=== PATIENT | male | born 1945 | race Caucasian/White ===

== ENCOUNTER 2017-05-21 18:40 | Inpatient (IN) ==
[2017-05-21 19:18] LABS: Basophils % 0.4 %; Eosinophils # 0.3 K/mcL (0.0-0.6); Immature Granulocytes % 0.5 % (0-4); Lymphocytes # 3.2 K/mcL (0.6-4.6); Lymphocytes % 32.4 %; Mean Corpuscular HGB Conc 33.8 g/dL (31.6-35.5); Mean Corpuscular Hemoglobin 29.8 pg (28.0-33.3); Mean Corpuscular Volume 88.1 fL (83.0-100.0); Mean Platelet Volume 10.5 fL (9.4-12.4); Monocytes # 0.7 K/mcL (0.0-1.3); Monocytes % 7.6 %; Neutrophils # 5.5 K/mcL (1.6-8.9); Platelet Count 215 K/mcL (140-400); Red Cell Distribution Width 14.1 % (11.5-14.5); Segmented Neutrophils % 56.1 %
--- NOTE | 2017-05-21 19:18 | Emergency Department Note ---
Disposition Clinical Impression: Generalized weakness, Elevated troponin Disposition: Admitted As Inpatient Condition: Good Weakness HPI - General Chief complaint: ED Chest Pain Stated complaint: Cardiac Workup Time Seen by Provider: 05/21/17 18:46 Source: patient Limitations: no limitations Nursing Notes Reviewed: Yes Vital Signs Reviewed: Yes - History of Present Illness HPI Narrative: Patient states in September he was admitted to [facility] in [facility] they said that his heart skips beats. He had a cardiac monitoring device on for 3 weeks he returned this on May 15 he received a call from the [facility] saying that this cardiac monitoring was abnormal and he needs to go to the ER immediately. During that 3 week period of time the patient denies any chest pain, palpitations, or syncope. His only complaint is generalized weakness which has been going on for some time now Pain Scale: 0 - Related Data Allergies Allergy/AdvReac Type Severity Reaction Status Date / Time simvastatin Allergy See Verified 05/21/17 18:42 Comments All systems ED: reviewed and negative except as stated. Constitutional: Reports: weakness. Denies: fever Cardiovascular: Denies: chest pain, palpitations, syncope Past Medical History - Past Medical History Source: patient, nursing notes reviewed Medical history: Reports: CHF, COPD, diabetes, hypertension, other (pulmonary embolism) Surgical history: Reports: angioplasty/stent ([facility]) Psychiatric history: Reports: no psych history - Social History Smoking Status: Former smoker Smokeless Tobacco Status: No Alcohol use: Reports: none Drug use: Reports: none Physical Exam - General Limitations: no limitations General appearance: alert Course Vital Signs Temperature 98.3 F 05/21/17 18:43 Pulse Rate 65 05/21/17 18:43 Respiratory Rate 20 05/21/17 18:43 Blood Pressure 188/78 05/21/17 18:43 O2 Sat by Pulse Oximetry 96 05/21/17 18:43 Temperature 98.3 F 05/21/17 18:43 Pulse Rate 78 05/21/17 20:03 Respiratory Rate 16 05/21/17 20:03 Blood Pressure 173/90 05/21/17 20:03 O2 Sat by Pulse Oximetry 97 05/21/17 20:03 Oxygen Delivery Oxygen Delivery Nasal Cannula Weakness - Lab Data Result diagrams: 05/21/17 19:07 05/21/17 19:07 Lab Results 05/21/17 05/21/17 05/21/17 Range/Units 19:07 19:07 19:07 WBC 9.8 (4.3-11.1) K/mcL RBC 4.46 (3.82-4.97) M/mcL Hgb 13.3 (11.5-15.4) g/dL Hct 39.3 (35.3-44.9) % MCV 88.1 (83.0-100.0) fL MCH 29.8 (28.0-33.3) pg MCHC 33.8 (31.6-35.5) g/dL RDW 14.1 (11.5-14.5) % Plt Count 215 (140-400) K/mcL MPV 10.5 (9.4-12.4) fL Immature Gran % 0.5 (0-4) % Seg Neutrophils % 56.1 % Lymphocytes % 32.4 % Monocytes % 7.6 % Eosinophils % 3.0 % Basophils % 0.4 % Neutrophils # 5.5 (1.6-8.9) K/mcL Lymphocytes # 3.2 (0.6-4.6) K/mcL Monocytes # 0.7 (0.0-1.3) K/mcL Eosinophils # 0.3 (0.0-0.6) K/mcL Basophils # 0.0 (0.0-0.2) K/mcL PT 11.1 (9.4-12.1) Seconds INR 1.0 APTT 32.2 (26.0-36.0) Seconds Sodium 138 (136-145) mEq/L Potassium 4.4 (3.5-4.5) mEq/L Chloride 102 (98-109) mEq/L Carbon Dioxide 26 (19-29) mEq/L BUN 15 (7-20) mg/dL Creatinine 0.90 (0.57-1.11) mg/dL Est GFR ( Amer) > 60 (> 60) Est GFR (Non-Af Amer) > 60 (> 60) BUN/Creatinine Ratio 17 (6-26) Glucose 258 H (70-99) mg/dL Calculated Osmolality 296 (280-300) Calcium 9.6 (8.6-10.8) mg/dL Magnesium 1.8 (1.6-2.6) mg/dL Troponin I (0-0.03) ng/mL TSH 1.054 (0.350-4.840) mcIU/mL 05/21/17 Range/Units 19:07 WBC (4.3-11.1) K/mcL RBC (3.82-4.97) M/mcL Hgb (11.5-15.4) g/dL Hct (35.3-44.9) % MCV (83.0-100.0) fL MCH (28.0-33.3) pg MCHC (31.6-35.5) g/dL RDW (11.5-14.5) % Plt Count (140-400) K/mcL MPV (9.4-12.4) fL Immature Gran % (0-4) % Seg Neutrophils % % Lymphocytes % % Monocytes % % Eosinophils % % Basophils % % Neutrophils # (1.6-8.9) K/mcL Lymphocytes # (0.6-4.6) K/mcL Monocytes # (0.0-1.3) K/mcL Eosinophils # (0.0-0.6) K/mcL Basophils # (0.0-0.2) K/mcL PT (9.4-12.1) Seconds INR APTT (26.0-36.0) Seconds Sodium (136-145) mEq/L Potassium (3.5-4.5) mEq/L Chloride (98-109) mEq/L Carbon Dioxide (19-29) mEq/L BUN (7-20) mg/dL Creatinine (0.57-1.11) mg/dL Est GFR ( Amer) (> 60) Est GFR (Non-Af Amer) (> 60) BUN/Creatinine Ratio (6-26) Glucose (70-99) mg/dL Calculated Osmolality (280-300) Calcium (8.6-10.8) mg/dL Magnesium (1.6-2.6) mg/dL Troponin I 0.07 H* (0-0.03) ng/mL TSH (0.350-4.840) mcIU/mL
[2017-05-21 19:28] LABS: Prothrombin Time 11.1 Seconds (9.4-12.1)
[2017-05-21 19:31] LABS: Activated Partial Thrombo Time 32.2 Seconds (26.0-36.0)
[2017-05-21 19:33] LABS: BUN/Creatinine Ratio 17 (6-26); Calcium 9.6 mg/dL (8.6-10.8); Carbon Dioxide 26 mEq/L (19-29); Chloride 102 mEq/L (98-109); Glucose 258 mg/dL (70-99); Magnesium 1.8 mg/dL (1.6-2.6); Osmolality,Calculated 296 (280-300); Potassium 4.4 mEq/L (3.5-4.5); Sodium 138 mEq/L (136-145); eGFR For African Americans > 60 (> 60); eGFR For Non-African Americans > 60 (> 60)
[2017-05-21] MEDS ORDERED: Aspirin 81 MG TAB.CHEW PO ONE (19:47)
[2017-05-21 19:55] LABS: Thyroid Stimulating Hormone 1.054 mcIU/mL (0.350-4.840)
[2017-05-21] MEDS ORDERED: Acetaminophen 325 MG TABLET PO PRN (22:16)
[2017-05-21] MEDS ORDERED: Naloxone 0.4 MG/ML INJ IVP PRN (22:16)
[2017-05-21] MEDS ORDERED: Ondansetron 4 MG/2 ML VIAL IVP PRN (22:16)
[2017-05-21] MEDS ORDERED: Dextrose Gel 15 GM PO PRN ×2 (22:20)
[2017-05-21] MEDS ORDERED: *HR* Dextrose 50 % in Water (Syg) 50 ML SYRINGE IVP PRN (22:20)
[2017-05-21] MEDS ORDERED: D5% in Water 1,000 ML IVC PRN (22:20)
[2017-05-21] MEDS ORDERED: Albuterol 2.5 MG/3 ML NEBULIZER IH PRN (22:23)
[2017-05-21] MEDS ORDERED: Melatonin 3 MG TABLET PO PRN (22:23)
[2017-05-21] MEDS ORDERED: Nitroglycerin 0.4 MG TAB.SUBL SL PRN (22:23)
[2017-05-21] MEDS: Insulin DETEMIR 100 UNIT/ML X5UNITS SQ SCH (22:54)
--- NOTE | 2017-05-22 03:13 | Internal Med History&Physical ---
Date of Encounter: 05/21/17 Time of Encounter: 21:00 Assessment and Plan (1) COPD (chronic obstructive pulmonary disease) Current visit: Yes Status: Acute Stable, no wheezing, continue home medications. Qualifiers: COPD type: emphysema Emphysema type: other Qualified Code(s): J43.8 - Other emphysema (2) Diabetes Current visit: Yes Status: Acute Continue basal and the sliding scale insulin. Qualifiers: Diabetes mellitus type: type 2 Diabetes mellitus complication status: without complication Diabetes mellitus fpc insulin use: with meterman use Qualified Code(s): E11.9 - Type 2 diabetes mellitus without complications ; Z79.4 - long-term (current) use of insulin (3) Hypertension Current visit: Yes Status: Acute Continue home medications. Monitor BP. Hydralazine 10 mg IV when necessary. Qualifiers: Hypertension type: essential hypertension Qualified Code(s): I10 - Essential (primary) hypertension (4) CHF (congestive heart failure) Current visit: Yes Status: Acute No signs of Exacerbation. Continue home medication Qualifiers: Congestive heart failure type: unspecified congestive heart failure type Congestive heart failure chronicity: chronic Qualified Code(s): I50.9 - Heart failure, unspecified (5) Arrhythmia Current visit: Yes Status: Acute Patient was called by [place] cardiology because of abnormal monitoring results. However, do not know what kind of arrhythmia patient has at this point. - We will OBTAIN [place] medical record. - Place patient on continuous cardiac monitoring. - Cardiology consult. - Echocardiogram. Qualifiers: Arrhythmia type: other cardiac arrhythmia Qualified Code(s): I49.8 - Other specified cardiac arrhythmias (6) DVT prophylaxis Current visit: Yes Status: Acute Heparin subcutaneously (7) Tobacco abuse Current visit: Yes Status: Acute Smoking cessation education. On nicotine patch (8) Generalized weakness Current visit: Yes Status: Acute Patient complaint dizziness. Possibly due to arrhythmia. [facility] Echocardiogram to rule out valve disease. (9) Elevated troponin Current visit: Yes Status: Acute Mild elevated troponin. Patient denies chest pain. No significant ST-T changes on EKG. We will check 3 sets of troponin. Internal Medicine - H&P: HPI Chief complaint: Dizziness Admitted From: Home Plans for Post Hospital Care: Home History of present illness: Ms. Hinkle is a 72 year old male with a history of diabetes, COPD, hypertension , CHF present to ER for dizziness. Patient actually was called by [place] cardiology because his cardiac monitoring shows abnormality. Patient said he has heart skipped beating since September. He feels dizziness. He never has syncope or lost consciousness. He was following with [place] cardiology and was placed on a portable monitor. He weared the monitor for 3 weeks and the monitor was taken off on last Sunday. Patient was called by [place] today and was advised to go to emergency room immediately. Patient does not know what kind of arrhythmia was notified by the monitoring. Patient denies chest pain but has mild shortness of breath and nausea. Past Med Surg Social Fam HX - Past Medical History Medical history: CHF, COPD, diabetes, hypertension, other Psychiatric history: no psych history - Past Surgical History Surgical History: angioplasty/stent - Social History Smoking Status: Former smoker Smokeless Tobacco Status: No Alcohol use: none Drug use: none - Family History Sister Hx Family Cardiac Disorders: Yes (Murmur) Hx Family Respiratory Disorders: No Hx Family Cancer: No Hx Family GI Disorders: No Hx Family Genitourinary Disorders: No Hx Family Endocrine Disorder: No Hx Family Musculoskeletal Disorders: No Hx Family Neuromuscular Disorders: No Hx Family Neurologic Disorders: No Hx Family HEENT Disorders: No Hx Family Autoimmune Disorders: No Hx Family Reproductive Disorders: No Hx Family Psychosocial Disorders: No Hx Family Medical Disorders: No Internal Medicine - H&P: Meds Acetaminophen [Tylenol] 500 mg PO Q4H PRN 05/21/17 [History] Albuterol Neb [Proventil Neb] 2.5 mg IH Q6H PRN 05/21/17 [History] Albuterol Sulfate [Albuterol Inhaler] 2 puff IH Q6H PRN 05/21/17 [History] Amlodipine Besylate 10 mg PO DAILY 05/21/17 [History] Ascorbic Acid [Vitamin C] 1,000 mg PO DAILY 05/21/17 [History] Aspirin 81 mg PO DAILY 05/21/17 [History] Atorvastatin Calcium [Lipitor] 80 mg PO HS 05/21/17 [History] Carboxymethylcellulose Sodium [Refresh Liquigel] 1 drop BOTH EYES QID 05/21/17 [ History] Cholecalciferol (D-3) [Vitamin D] 2,000 unit PO HS 05/21/17 [History] Cyanocobalamin (Vitamin B-12) [Vitamin B-12] 100 mcg PO DAILY 05/21/17 [History] Dextrose [Glucose] 15 gm PO AD PRN 05/21/17 [History] Furosemide [Lasix] 60 mg PO DAILY 05/21/17 [History] Haloperidol [Haldol] 25 mg PO HS 05/21/17 [History] Insulin ASPART [NovoLOG] 5 unit SQ 1500 05/21/17 [History] Insulin Glargine,Hum.rec.anlog [Basaglar Kwikpen U-100] 40 unit SQ BID 05/21/17 [History] Isosorbide MONOnitrate (24 HR) [Imdur] 30 mg PO DAILY 05/21/17 [History] Lidocaine 4% CRM (LMX) [Lmx 4] 1 appl TP Q6H 05/21/17 [History] Losartan Potassium [Cozaar] 50 mg PO QAM 05/21/17 [History] Losartan Potassium [Cozaar] 100 mg PO QPM 05/21/17 [History] Lutein/Zeaxanthin [Ocuvite Lutein 25-5 mg Softgel] 1 each PO DAILY 05/21/17 [ History] Mag Hydrox/Al Hydrox/Simeth [Maalox Advanced Suspension] 10 ml PO QID PRN [History] Magnesium Hydroxide [Milk of Magnesia] 7,200 mg PO BID PRN 05/21/17 [History] Melatonin [Melatin] 3 mg PO HS PRN 05/21/17 [History] Multivitamin-Min/Iron/FA/Vit K [Multi-Day Plus Minerals Tablet] 1 each PO DAILY 05/21/17 [History] Nitroglycerin [Nitrostat] 0.4 mg SL Q5M PRN 05/21/17 [History] [place]-3/Dha/Epa/Fish Oil [Fish Oil 1,000 mg Softgel] 1,000 mg PO BID 05/21/17 [ History] Polyethylene Glycol 3350 [MiraLAX] 17 gm PO DAILY 05/21/17 [History] Potassium Chloride [Klor-Con 10] 20 meq PO TID 05/21/17 [History] Prazosin HCl [Minipress] 12 mg PO HS 05/21/17 [History] Propylene Glycol/Peg 400 [Systane 0.3-0.4% Eye Drops] 1 drop OP QID 05/21/17 [ History] Pyridoxine (B-6) [Vitamin B-6] 50 mg PO DAILY 05/21/17 [History] Ranitidine HCl [Zantac] 150 mg PO HS 05/21/17 [History] Saliva Substitute Combo No.3 [Aquoral] 4 spray MM Q4H 05/21/17 [History] Saw Maiden Fruit [Saw Maiden] 450 mg PO DAILY 05/21/17 [History] Sennosides/Docusate Sodium [Senna Plus] 1 each PO BID 05/21/17 [History] Spironolactone [Aldactone] 12.5 mg PO DAILY 05/21/17 [History] Terbinafine HCl [Terbinafine] 1 appl TP HS 05/21/17 [History] 3 Allergy/AdvReac Type Severity Reaction Status Date / Time simvastatin Allergy See Verified 05/21/17 21:18 Comments Mesoridazine [From Serentil] AdvReac See Verified 05/21/17 21:18 Comments All Systems PM: A 10-system review of systems was performed and is negative for pertinent findings except as documented above in the HPI. - Constitutional Vitals: Temp Pulse Resp BP Pulse Ox 98.0 F 72 16 165/77 96 05/21/17 21:33 05/21/17 21:33 05/21/17 21:33 05/22/17 00:01 05/21/17 21:33 General appearance: Present: A&O X 3, no acute distress, answers questions appropriately - Head Head exam: Present: atraumatic, normocephalic - Eye Eye exam: Present: PERRL, conjuntiva pink, sclera anicteric Pupils: Present: PERRL - Neck Neck exam general surgery: Present: supple, trachea midline. Absent: lymphadenopathy - Respiratory Respiratory exam: Present: CTAB. Absent: accessory muscle use, rales, rhonchi, wheezes - Cardiovascular Cardiovascular exam: Present: RRR, +S1, +S2. Absent: diastolic murmur, gallop, rubs, systolic murmur - GI/Abdominal GI/Abdominal exam: Present: normal bowel sounds, soft, no peritoneal signs. Absent: distended, tenderness - Extremities Exam Extremities exam: Present: warm, radial pulses palpable and symmetrical. Absent : calf tenderness, cyanotic, pedal edema - Neurological Exam Neurological exam: Present: CN II-XII intact, oriented X3, no focal deficits. Absent: pronater drift, facial droop, speech deficit Additional comments: Patient has a resting tremor - Skin Skin exam: Present: dry, intact Internal Med - H&P Results - Labs CBC & Chem 7: 05/21/17 19:07 05/21/17 19:07 Labs: Cardiac Enzymes 05/21/17 Range/Units 22:49 Troponin I 0.09 H* (0-0.03) ng/mL - EKG Data -: EKG Interpreted by Myself EKG shows normal: sinus rhythm (First degree AV block)
[2017-05-22] MEDS: *HR* Heparin 5,000 UNIT/ML VIAL SQ SCH ×2 (06:11→18:35)
[2017-05-22 06:21] LABS: Basophils % 0.3 %; Eosinophils # 0.4 K/mcL (0.0-0.6); Eosinophils % 4.5 %; Immature Granulocytes % 0.3 % (0-4); Mean Corpuscular HGB Conc 33.1 g/dL (31.6-35.5); Mean Corpuscular Hemoglobin 29.1 pg (28.0-33.3); Mean Corpuscular Volume 87.9 fL (83.0-100.0); Mean Platelet Volume 10.8 fL (9.4-12.4); Monocytes # 0.7 K/mcL (0.0-1.3); Monocytes % 7.4 %; Neutrophils # 5.3 K/mcL (1.6-8.9); Platelet Count 204 K/mcL (140-400); Segmented Neutrophils % 55.5 %
[2017-05-22 06:42] LABS: BUN/Creatinine Ratio 16 (6-26); Calcium 9.7 mg/dL (8.6-10.8); Carbon Dioxide 29 mEq/L (19-29); Chloride 106 mEq/L (98-109); Glucose 116 mg/dL (70-99); Magnesium 1.7 mg/dL (1.6-2.6); Osmolality,Calculated 295 (280-300); Potassium 3.7 mEq/L (3.5-4.5); Sodium 142 mEq/L (136-145); eGFR For African Americans > 60 (> 60); eGFR For Non-African Americans > 60 (> 60)
--- NOTE | 2017-05-22 09:57 | Cardiology Consult Note ---
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 Event monitor results not available for review, will request. 24 hr tele reviewed and telemetry strips reviewed with Dr. Marquez. Appears to have episodes of Wenckebach (Mobitz I second degree AV block). Lowest HR was noted to be 28 at 0623. Also appears to to have blocked PACs. Longest pause 2.8 seconds at 0632. Highest HR 101, SR. Pt reports dizziness/lightheadedness and increased fatigue over recent weeks. Denies syncope. Denies any recent med changes. Reviewed home medications. Pt is not on any AV isaiah blockers. Echo pending. Reports stress test at CT 03/2017. Will request records. K 3.7, Mag 1.7, TSH 1.054. Given symptoms as above and Wenckebach, will consult EP to evaluate for PPM. Further recommendations to follow. (2) Elevated troponin Current Visit: Yes Status: Acute Troponins 0.07, 0.09, 0.08. Mild elevation, flat and adynamic. Suspect secondary to accelerated HTN on presentation with BP as high as 195/102. Nondiagnostic for ACS. No ischemic EKG changes noted. Pt denies chest pain. Reports recent stress test at CT 03/2017. Will request records. Echo pending. Denies CAD hx. (3) Tobacco abuse Current Visit: Yes Status: Acute Smoking cessation counseling given. Discussion w patient/family: The assessment and plan as outlined above was discussed with the patient and/or family members who expressed understanding and agreement. All questions were answered. Thank you for involving us in the care of your patient. Please call with any questions. I will discuss all the above with Dr. Marquez and make changes as necessary. History of Present Illness Consult date: 05/22/17 Requesting physician: Jason Briseno Consult reason: Bradycardia, Wenckebach Chief complaint: dizziness, lightheadedness, fatigue History of present illness: Mr. Hinkle is a 72 year old male with PMH of DM, COPD, HTN, HLD, CHF (unclear type), tobacco abuse that presented to [facility] as recommended by CT vp client services Dr. Mckinnon for "tachy abraham syndrome" on recent event monitor, per CT documentation. Pt reports dizziness/lightheadedness and increased fatigue over recent weeks. He denies any syncopal events or falls. Denies any medication changes to his knowledge. Denies any known hx of CAD. Reportedly had a stress test at CT 03/2017. He denies chest pain. He reports chronic dyspnea, worse on exertion. Troponins 0.07, 0.09, 0.07. Telemetry reviewed. Lowest HR 28 at 6:23 AM. Evidence of Wenckebach on telemetry. Past Med Surg Social Fam HX - Past Medical History Medical history: CHF, COPD, diabetes, hyperlipidemia, hypertension, other Psychiatric history: no psych history - Social History Smoking Status: Former smoker Smokeless Tobacco Status: No Alcohol use: none Drug use: none - Family History Sister Hx Family Cardiac Disorders: Yes (Murmur) Hx Family Respiratory Disorders: No Hx Family Cancer: No Hx Family GI Disorders: No Hx Family Genitourinary Disorders: No Hx Family Endocrine Disorder: No Hx Family Musculoskeletal Disorders: No Hx Family Neuromuscular Disorders: No Hx Family Neurologic Disorders: No Hx Family HEENT Disorders: No Hx Family Autoimmune Disorders: No Hx Family Reproductive Disorders: No Hx Family Psychosocial Disorders: No Hx Family Medical Disorders: No Medications and Allergies Acetaminophen [Tylenol] 500 mg PO Q4H PRN 05/21/17 [History] Albuterol Neb [Proventil Neb] 2.5 mg IH Q6H PRN 05/21/17 [History] Albuterol Sulfate [Albuterol Inhaler] 2 puff IH Q6H PRN 05/21/17 [History] Amlodipine Besylate 10 mg PO DAILY 05/21/17 [History] Ascorbic Acid [Vitamin C] 1,000 mg PO DAILY 05/21/17 [History] Aspirin 81 mg PO DAILY 05/21/17 [History] Atorvastatin Calcium [Lipitor] 80 mg PO HS 05/21/17 [History] Carboxymethylcellulose Sodium [Refresh Liquigel] 1 drop BOTH EYES QID 05/21/17 [ History] Cholecalciferol (D-3) [Vitamin D] 2,000 unit PO HS 05/21/17 [History] Cyanocobalamin (Vitamin B-12) [Vitamin B-12] 100 mcg PO DAILY 05/21/17 [History] Dextrose [Glucose] 15 gm PO AD PRN 05/21/17 [History] Furosemide [Lasix] 60 mg PO DAILY 05/21/17 [History] Haloperidol [Haldol] 25 mg PO HS 05/21/17 [History] Insulin ASPART [NovoLOG] 5 unit SQ 1500 05/21/17 [History] Insulin Glargine,Hum.rec.anlog [Basaglar Kwikpen U-100] 40 unit SQ BID 05/21/17 [History] Isosorbide MONOnitrate (24 HR) [Imdur] 30 mg PO DAILY 05/21/17 [History] Lidocaine 4% CRM (LMX) [Lmx 4] 1 appl TP Q6H 05/21/17 [History] Losartan Potassium [Cozaar] 50 mg PO QAM 05/21/17 [History] Losartan Potassium [Cozaar] 100 mg PO QPM 05/21/17 [History] Lutein/Zeaxanthin [Ocuvite Lutein 25-5 mg Softgel] 1 each PO DAILY 05/21/17 [ History] Mag Hydrox/Al Hydrox/Simeth [Maalox Advanced Suspension] 10 ml PO QID PRN [History] Magnesium Hydroxide [Milk of Magnesia] 7,200 mg PO BID PRN 05/21/17 [History] Melatonin [Melatin] 3 mg PO HS PRN 05/21/17 [History] Multivitamin-Min/Iron/FA/Vit K [Multi-Day Plus Minerals Tablet] 1 each PO DAILY 05/21/17 [History] Nitroglycerin [Nitrostat] 0.4 mg SL Q5M PRN 05/21/17 [History] [place]-3/Dha/Epa/Fish Oil [Fish Oil 1,000 mg Softgel] 1,000 mg PO BID 05/21/17 [ History] Polyethylene Glycol 3350 [MiraLAX] 17 gm PO DAILY 05/21/17 [History] Potassium Chloride [Klor-Con 10] 20 meq PO TID 05/21/17 [History] Prazosin HCl [Minipress] 12 mg PO HS 05/21/17 [History] Propylene Glycol/Peg 400 [Systane 0.3-0.4% Eye Drops] 1 drop OP QID 05/21/17 [ History] Pyridoxine (B-6) [Vitamin B-6] 50 mg PO DAILY 05/21/17 [History] Ranitidine HCl [Zantac] 150 mg PO HS 05/21/17 [History] Saliva Substitute Combo No.3 [Aquoral] 4 spray MM Q4H 05/21/17 [History] Saw [place] Fruit [Saw [place]] 450 mg PO DAILY 05/21/17 [History] Sennosides/Docusate Sodium [Senna Plus] 1 each PO BID 05/21/17 [History] Spironolactone [Aldactone] 12.5 mg PO DAILY 05/21/17 [History] Terbinafine HCl [Terbinafine] 1 appl TP HS 05/21/17 [History] 3 Allergy/AdvReac Type Severity Reaction Status Date / Time simvastatin Allergy See Verified 05/21/17 21:18 Comments Mesoridazine [From Serentil] AdvReac See Verified 05/21/17 21:18 Comments All Systems Review: A 10-system review of systems was performed and is negative for pertinent findings except as documented above in the HPI. - Constitutional Constitutional: fatigue - Cardiovascular Cardiovascular: as per HPI, dyspnea at rest, dyspnea on exertion, lightheadedness - Neurological Neurological: dizziness Physical Examination Vital Signs, Last 4 Hours Temp Pulse Resp BP Pulse Ox 05/22/17 07:06 98.1 F 59 15 152/76 98 Vital Signs Temp Pulse Resp BP Pulse Ox 05/22/17 07:06 98.1 F 59 15 152/76 98 05/22/17 04:05 97.9 F 98 16 160/85 99 05/22/17 00:01 165/77 05/21/17 21:33 98.0 F 72 16 185/98 96 05/21/17 21:24 98.3 F 18 176/94 05/21/17 21:04 75 18 195/102 97 05/21/17 20:03 78 16 173/90 97 05/21/17 19:00 96 05/21/17 18:43 98.3 F 65 20 188/78 96 Intake and Output 05/21/17 05/22/17 05/22/17 23:59 07:59 15:59 Output Total 2124 Balance -2124 / -2124 Output: Urine 2125 / 2125 Other: Weight 98.43 kg 98.3 kg Blood Glucose* 180 135 Patient Weight 05/22/17 23:59 Weight 98.3 kg General: Conversant, No Apparent Distress HEENT: Atraumatic, Normocephaly, Mucus Membranes Moist Neck: No JVD, Normal carotid pulses Cardiac: Reg Rate and Rhythm, Normal S1 and S2, No Murmur Lungs: Normal Breath Sounds, No Wheeze, Rales, Rhonchi Neuro: Alert and responsive, No focal deficits noted Abdomen: Soft, Non-Tender Skin: No rashes noted on visualized skin Musculoskeletal: No Chest Wall Tenderness Extremities: No Clubbing, No Cyanosis, No Edema, Normal Pulses Results 05/22/17 05:41 05/22/17 05:41 Lab Results 05/21/17 05/22/17 05/22/17 22:49 05:41 05:41 WBC 9.5 Hgb 13.2 Hct 39.9 Plt Count 204 Sodium 142 Potassium 3.7 Chloride 106 Carbon Dioxide 29 BUN 12 Creatinine 0.73 Glucose 116 H Calcium 9.7 Magnesium 1.7 Troponin I 0.09 H* 05/22/17 05:41 WBC Hgb Hct Plt Count Sodium Potassium Chloride Carbon Dioxide BUN Creatinine Glucose Calcium Magnesium Troponin I 0.08 H* Short CBC 05/22/17 05/21/17 Range/Units 05:41 19:07 WBC 9.5 9.8 (4.3-11.1) K/mcL Hgb 13.2 13.3 (11.5-15.4) g/dL Hct 39.9 39.3 (35.3-44.9) % Plt Count 204 215 (140-400) K/mcL Neutrophils # 5.3 5.5 (1.6-8.9) K/mcL BMP 05/22/17 05/21/17 Range/Units 05:41 19:07 Sodium 142 138 (136-145) mEq/L Potassium 3.7 4.4 (3.5-4.5) mEq/L Chloride 106 102 (98-109) mEq/L Carbon Dioxide 29 26 (19-29) mEq/L BUN 12 15 (7-20) mg/dL Creatinine 0.73 0.90 (0.57-1.11) mg/dL Glucose 116 H 258 H (70-99) mg/dL Calcium 9.7 9.6 (8.6-10.8) mg/dL Cardiac Enzymes 05/22/17 05/21/17 05/21/17 Range/Units 05:41 22:49 19:07 Troponin I 0.08 H* 0.09 H* 0.07 H* (0-0.03) ng/mL Active Medications Acetaminophen (Tylenol) 650 mg PO Q6HR PRN PRN Reason: Mild Pain (1-3) Stop: 11/20/17 22:17 Albuterol Sulfate (Proventil Neb) 2.5 mg IH Q6H PRN; Protocol PRN Reason: Dyspnea Stop: 11/20/17 22:24 Albuterol Sulfate (Albuterol Inhaler) 2 puff IH Q6H PRN PRN Reason: Shortness Of Breath Stop: 11/20/17 22:24 Amlodipine Besylate (Norvasc) 10 mg PO DAILY [facility] Stop: 11/21/17 09:01 Aspirin (Aspirin) 81 mg PO DAILY [facility] Stop: 11/21/17 09:01 Atorvastatin Calcium (Lipitor) 80 mg PO HS [facility] Stop: 11/21/17 21:01 Dextrose/Water (Dextrose 50% (Syg)) 25 ml IVP AD PRN PRN Reason: Hypoglycemia Stop: 11/20/17 22:21 Famotidine (Pepcid) 20 mg PO HS [facility] Stop: 11/21/17 21:01 Furosemide (Lasix) 60 mg PO DAILY [facility] Stop: 11/21/17 09:01 Glucagon (Glucagen) 1 mg IM ONCE PRN PRN Reason: Hypoglycemia Stop: 11/20/17 22:21 Glucose (Gluctose) 15 gm PO ONCE PRN PRN Reason: Hypoglycemia Stop: 11/20/17 22:21 Glucose (Gluctose) 30 gm PO ONCE PRN PRN Reason: Hypoglycemia Stop: 11/20/17 22:21 Haloperidol (Haldol) 25 mg PO HS [facility] Stop: 11/20/17 23:35 Last Admin: 05/21/17 23:54 Dose: 25 mg Heparin Sodium (Porcine) (Heparin) 5,000 unit SQ Q12HR ANDREWS Stop: 11/21/17 06:01 Last Admin: 05/22/17 06:11 Dose: 5,000 unit Hydralazine HCl (Hydralazine) 10 mg IVP Q6HR PRN PRN Reason: Hypertension Stop: 11/20/17 22:23 Dextrose (Dextrose 5%) 1,000 mls @ 100 mls/hr IVC .Q10H PRN PRN Reason: HYPOGLYCEMIA Stop: 11/20/17 22:21 Insulin Detemir (Levemir) 40 unit SQ BID [facility] Stop: 11/20/17 22:21 Last Admin: 05/21/17 22:54 Dose: 40 unit Insulin Human Lispro (Humalog) 0 units SQ HS ANDREWS PRN Reason: Protocol Stop: 11/21/17 21:01 Insulin Human Lispro (Humalog) 0 units SQ TIDAC ANDREWS PRN Reason: Protocol Stop: 11/21/17 07:31 Isosorbide Mononitrate (Imdur) 30 mg PO DAILY [facility] Stop: 11/21/17 09:01 Losartan Potassium (Cozaar) 50 mg PO QAM [facility] Stop: 11/21/17 09:01 Losartan Potassium (Cozaar) 100 mg PO QPM [facility] Stop: 11/21/17 18:01 Melatonin (Melatonin) 3 mg PO HS PRN PRN Reason: Sleep Stop: 11/20/17 22:24 Naloxone HCl (Narcan) 0.4 mg IVP Q2MIN PRN PRN Reason: Opioid Reversal Stop: 11/20/17 22:17 Nicotine (Nicoderm) 21 mg TD DAILY [facility] PRN Reason: Protocol Stop: 11/21/17 09:01 Nitroglycerin (Nitroglycerin) 0.4 mg SL Q5M PRN PRN Reason: Chest Pain Stop: 11/20/17 22:24 Ondansetron HCl (Zofran) 4 mg IVP Q8HR PRN PRN Reason: Nausea And Vomiting Stop: 11/20/17 22:17 Pharmacy Profile Note (Patient Taking Own Medication) 1 each PO DAILY [facility] Stop: 11/21/17 09:01 Polyethylene Glycol (Miralax) 17 gm PO DAILY [facility] Stop: 11/21/17 09:01 Prazosin HCl (Minipress) 12 mg PO HS [facility] Stop: 11/21/17 21:01 Senna/Docusate Sodium (Senna Plus) 1 each PO BID [facility] PRN Reason: Protocol Stop: 11/21/17 09:01 Spironolactone (Aldactone) 12.5 mg PO DAILY [facility] Stop: 11/21/17 09:01 - Imaging and Cardiology Echo: pending - EKG Interpretation EKG results cardiology: personally reviewed (SR, 1st degree block.), other (24 hr tele AVG HR 60, longest pause 2.8 seconds at 0632 and lowest HR 28 at 0623. Periods of Wenckebach.) Consult Discharge Plan - Plan [facility]Primary Care Provider[facility] -
[2017-05-22] MEDS: Insulin LISPRO 300 UNITS/3 ML VIAL SQ SCH ×3 (10:09→16:43)
[2017-05-22] MEDS: Insulin DETEMIR 100 UNIT/ML X5UNITS SQ SCH ×2 (11:06→21:30)
[2017-05-22] MEDS: Furosemide 40 MG TABLET PO SCH (11:07)
[2017-05-22] MEDS: Spironolactone 25 MG TABLET PO SCH (11:08)
[2017-05-22] MEDS: Aspirin 81 MG TAB.CHEW PO SCH (11:09)
[2017-05-22] MEDS: Sennosides/Docusate Sodium TABLET PO SCH ×2 (11:09→21:31)
[2017-05-22] MEDS: Isosorbide MONOnitrate (24 HR) 30 MG TAB.ER.24H PO SCH (11:09)
[2017-05-22] MEDS: Nicotine 21 MG PATCH.TD24 TD SCH (11:13)
[2017-05-22] MEDS: CYANOCOBALAMIN 100 MCG PO SCH (11:15)
[2017-05-22] MEDS: amLODIPine 5 MG TABLET PO SCH (11:19)
--- NOTE | 2017-05-22 12:44 | Electrophysiology Consult Note ---
Date of Encounter: 05/22/17 Time of Encounter: 12:35 Assessment and Plan (1) Vishchularick Current Visit: Yes Status: Acute Patient was sent by [place] arcade games mechanic due to evidence of tachy-abraham syndrome on Holter monitor turned in last week. Holter monitor and recent stress test ordered for our review. Initial EKG shows SR with frequent PAC. 24 hr tele review shows Weyunierkerick (Mobitz I second degree AV block). Lowest HR was noted to be 28 at 0623. Also appears to to have blocked PACs. Longest pause 2.8 seconds at 0632. Highest HR 101, SR. Patient admits to symptoms of dizziness/lightheadedness and increased fatigue over the last month. Denies syncope. States that he felt like he was going to pass out a few times. Pt is not on any AV isaiah blockers. Echo shows preserved EF. No significant valvular disease. Electrolytes are normal. TSH is normal. Patient describes symptoms likely related to second degree AV block type I. I discussed PPM indication with patient and sister who is medical POA. They would agree to proceed. I will discuss further with Dr. Addison Hong. Discussion w patient/family: The assessment and plan as outlined above was discussed with the patient and/or family members who expressed understanding and agreement. All questions were answered. Thank you for involving us in the care of your patient. Please call with any questions. History of Present Illness Consult date: 05/22/17 Requesting physician: Yamil Marquez Consult reason: second degree type I block Chief complaint: Dizziness, fatigue History of present illness: Mr. Hinkle is a 72 year old male with a history of COPD, HTN, and chronic back pain who presented from the [place] with abnormal holter monitor findings. He was seen by a arcade games mechanic at the [facility] after he was hospitalized at [facility] in [facility] for hypertension. During his hospital stay at [facility] he was seen to have "skipped beats" and was recommended to be evaluated by a arcade games mechanic. He went to the [facility] and a holter monitor was ordered. He was reported to have evidence of tachy-abraham syndrome. The [place] called the patient and told him to go to the ER here at [place]. He was evaluated by or cardiology team and seen to have second degree type I AV block and blocked PAC. He admits to intermittent dizziness sitting or with position change. Occasionally feeling like he may pass out. C/o increased fatigue over the past couple of months. Denies chest pain. Denies orthopnea, PND, or edema. Past Med Surg Social Fam HX - Past Medical History Medical history: CHF, COPD, diabetes, hyperlipidemia, hypertension, other Psychiatric history: no psych history - Social History Smoking Status: Former smoker Smokeless Tobacco Status: No Alcohol use: none Drug use: none - Family History Sister Hx Family Cardiac Disorders: Yes (Murmur) Hx Family Respiratory Disorders: No Hx Family Cancer: No Hx Family GI Disorders: No Hx Family Genitourinary Disorders: No Hx Family Endocrine Disorder: No Hx Family Musculoskeletal Disorders: No Hx Family Neuromuscular Disorders: No Hx Family Neurologic Disorders: No Hx Family HEENT Disorders: No Hx Family Autoimmune Disorders: No Hx Family Reproductive Disorders: No Hx Family Psychosocial Disorders: No Hx Family Medical Disorders: No Medications and Allergies Acetaminophen [Tylenol] 500 mg PO Q4H PRN 05/21/17 [History] Albuterol Neb [Proventil Neb] 2.5 mg IH Q6H PRN 05/21/17 [History] Albuterol Sulfate [Albuterol Inhaler] 2 puff IH Q6H PRN 05/21/17 [History] Amlodipine Besylate 10 mg PO DAILY 05/21/17 [History] Ascorbic Acid [Vitamin C] 1,000 mg PO DAILY 05/21/17 [History] Aspirin 81 mg PO DAILY 05/21/17 [History] Atorvastatin Calcium [Lipitor] 80 mg PO HS 05/21/17 [History] Carboxymethylcellulose Sodium [Refresh Liquigel] 1 drop BOTH EYES QID 05/21/17 [ History] Cholecalciferol (D-3) [Vitamin D] 2,000 unit PO HS 05/21/17 [History] Cyanocobalamin (Vitamin B-12) [Vitamin B-12] 100 mcg PO DAILY 05/21/17 [History] Dextrose [Glucose] 15 gm PO AD PRN 05/21/17 [History] Furosemide [Lasix] 60 mg PO DAILY 05/21/17 [History] Haloperidol [Haldol] 25 mg PO HS 05/21/17 [History] Insulin ASPART [NovoLOG] 5 unit SQ 1500 05/21/17 [History] Insulin Glargine,Hum.rec.anlog [Basaglar Kwikpen U-100] 40 unit SQ BID 05/21/17 [History] Isosorbide MONOnitrate (24 HR) [Imdur] 30 mg PO DAILY 05/21/17 [History] Lidocaine 4% CRM (LMX) [Lmx 4] 1 appl TP Q6H 05/21/17 [History] Losartan Potassium [Cozaar] 50 mg PO QAM 05/21/17 [History] Losartan Potassium [Cozaar] 100 mg PO QPM 05/21/17 [History] Lutein/Zeaxanthin [Ocuvite Lutein 25-5 mg Softgel] 1 each PO DAILY 05/21/17 [ History] Mag Hydrox/Al Hydrox/Simeth [Maalox Advanced Suspension] 10 ml PO QID PRN [History] Magnesium Hydroxide [Milk of Magnesia] 7,200 mg PO BID PRN 05/21/17 [History] Melatonin [Melatin] 3 mg PO HS PRN 05/21/17 [History] Multivitamin-Min/Iron/FA/Vit K [Multi-Day Plus Minerals Tablet] 1 each PO DAILY 05/21/17 [History] Nitroglycerin [Nitrostat] 0.4 mg SL Q5M PRN 05/21/17 [History] [place]-3/Dha/Epa/Fish Oil [Fish Oil 1,000 mg Softgel] 1,000 mg PO BID 05/21/17 [ History] Polyethylene Glycol 3350 [MiraLAX] 17 gm PO DAILY 05/21/17 [History] Potassium Chloride [Klor-Con 10] 20 meq PO TID 05/21/17 [History] Prazosin HCl [Minipress] 12 mg PO HS 05/21/17 [History] Propylene Glycol/Peg 400 [Systane 0.3-0.4% Eye Drops] 1 drop OP QID 05/21/17 [ History] Pyridoxine (B-6) [Vitamin B-6] 50 mg PO DAILY 05/21/17 [History] Ranitidine HCl [Zantac] 150 mg PO HS 05/21/17 [History] Saliva Substitute Combo No.3 [Aquoral] 4 spray MM Q4H 05/21/17 [History] Saw [place] Fruit [Saw [place]] 450 mg PO DAILY 05/21/17 [History] Sennosides/Docusate Sodium [Senna Plus] 1 each PO BID 05/21/17 [History] Spironolactone [Aldactone] 12.5 mg PO DAILY 05/21/17 [History] Terbinafine HCl [Terbinafine] 1 appl TP HS 05/21/17 [History] 3 Allergy/AdvReac Type Severity Reaction Status Date / Time simvastatin Allergy See Verified 05/21/17 21:18 Comments Mesoridazine [From Serentil] AdvReac See Verified 05/21/17 21:18 Comments All Systems Review: A 10-system review of systems was performed and is negative for pertinent findings except as documented above in the HPI. Physical Examination Vital Signs, Last 4 Hours Temp Pulse Resp BP Pulse Ox 05/22/17 10:50 98.1 F 80 15 175/87 97 General: Conversant, No Apparent Distress, Other (Poor historian) HEENT: Atraumatic, Normocephaly, Mucus Membranes Moist Neck: No JVD, Normal carotid pulses Cardiac: Reg Rate and Rhythm, Normal S1 and S2, No Murmur Lungs: Normal Breath Sounds, No Wheeze, Rales, Rhonchi Neuro: Alert and responsive, No focal deficits noted Abdomen: Soft, Non-Tender Skin: No rashes noted on visualized skin Musculoskeletal: No Chest Wall Tenderness Extremities: No Clubbing, No Cyanosis, No Edema, Normal Pulses Results 05/22/17 05:41 05/22/17 05:41 Lab Results 05/21/17 05/22/17 05/22/17 22:49 05:41 05:41 WBC 9.5 Hgb 13.2 Hct 39.9 Plt Count 204 Sodium 142 Potassium 3.7 Chloride 106 Carbon Dioxide 29 BUN 12 Creatinine 0.73 Glucose 116 H Calcium 9.7 Magnesium 1.7 Troponin I 0.09 H* 05/22/17 05:41 WBC Hgb Hct Plt Count Sodium Potassium Chloride Carbon Dioxide BUN Creatinine Glucose Calcium Magnesium Troponin I 0.08 H* - EKG Interpretation EKG results cardiology: personally reviewed (Sr with frequent PAC, HR 93) Consult Discharge Plan - Plan [facility]errals: [facility] [Primary Care Provider] -
[2017-05-22] MEDS ORDERED: ceFAZolin 2,000 MG in D5% in Water 100 ML IVPB ONE (15:26)
--- NOTE | 2017-05-22 16:45 | Pre-Sedation Evaluation ---
Pre-sedation evaluation - Pre-sedation checklist Date of procedure: 05/22/17 Procedure: insertion of pacemaker Recent Vitals: Last Vital Signs Temp 98.0 F 05/22/17 15:52 Pulse 69 05/22/17 15:52 Resp 16 05/22/17 15:52 BP 156/77 05/22/17 15:52 Pulse Ox 98 05/22/17 15:52 H&P (including ROS) documented in medical record: Yes Previous reaction to sedatives/anesthetics: No Dietary Status: NPO 6 hours prior to procedure Airway Assessment: Patient can open mouth completely, TMJ function normal, Micrognathia (under-bite, receding chin) absent Dentition: No loose teeth or bridges, poor dentition Possible difficult airway: No ASA Classification *see protocol: CLASS II-Mild systemic disease Plan of Care: Pt appropriate candidate for procedure/moderate/conscious sedation
[2017-05-22] MEDS ORDERED: 0.9 % Sodium Chloride 1,000 ML ONE (17:02)
[2017-05-22] MEDS ORDERED: 0.9 % Sodium Chloride 500 ML ONE (17:04)
--- NOTE | 2017-05-22 17:05 | Electrocardiograph Report ---
[place] [id number] Test Date: 2017-05-21 Pat Name: Fernandez Hinkle Department: 104 Room: 3B Gender: M Brass Chaser: LARY : 1945 Requested By: Teodoro Melendez Order Number: [id number] Reading MD: Irma Hong Measurements Intervals [place] Rate: 70 P: 46 WV: 259 QRS: 54 QRSD: 87 T: 138 QT: 398 QTc: 418 Interpretive Statements SINUS RHYTHM WITH FIRST DEGREE AV BLOCK LEFT VENTRICULAR HYPERTROPHY AND ST-T CHANGE Electronically Signed On 05-22-2017 17:03:01 EDT by Irma Hong
[2017-05-22] MEDS ORDERED: *HR* Midazolam HCl 2 MG/2 ML VIAL ONE (17:07)
[2017-05-22] MEDS ORDERED: *HR* FentaNYL (PF) 100 MCG/2 ML VIAL ONE (17:07)
--- NOTE | 2017-05-22 18:22 | Internal Med Progress Note ---
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 - Other emphysema (3) Diabetes Current Visit: Yes Status: Acute Assessment and plan: Use insulin sliding scale Qualifiers: Diabetes mellitus type: type 2 Diabetes mellitus complication status: without complication Diabetes mellitus ad terminal makeup operator insulin use: with ad terminal makeup operator use Qualified Code(s): E11.9 - Type 2 diabetes mellitus without complications ; Z79.4 - termite control servicer (current) use of insulin (4) Hypertension Current Visit: Yes Status: Acute Qualifiers: Hypertension type: essential hypertension Qualified Code(s): I10 - Essential (primary) hypertension (5) CHF (congestive heart failure) Current Visit: Yes Status: Acute Assessment and plan: No exacerbation Qualifiers: Congestive heart failure type: diastolic Congestive heart failure chronicity: chronic Qualified Code(s): I50.32 - Chronic diastolic (congestive ) heart failure (6) Tobacco abuse Current Visit: Yes Status: Acute Assessment and plan: Smoking cessation counseling, nicotine patch (7) Elevated troponin Current Visit: Yes Status: Acute Assessment and plan: likely demand ischemia - Subjective Interval history: mild pain over let upper chest after having pacemaker placed, denies SOB, no further dizziness, no headache, no abdominal pain or dysuria, no diarrhea - Constitutional Vitals: Temp Pulse Resp BP Pulse Ox 98.0 F 69 16 156/77 98 05/22/17 15:52 05/22/17 15:52 05/22/17 15:52 05/22/17 15:52 05/22/17 15:52 General appearance: Present: A&O X 3, no acute distress, answers questions appropriately - Head Head exam: Present: atraumatic, normocephalic - Eye Eye exam: Present: PERRL, conjuntiva pink, sclera anicteric Pupils: Present: PERRL - Neck Neck exam general surgery: Present: supple, trachea midline. Absent: lymphadenopathy - Respiratory Respiratory exam: Present: CTAB. Absent: accessory muscle use, rales, rhonchi, wheezes - Cardiovascular Cardiovascular exam: Present: RRR, +S1, +S2. Absent: diastolic murmur, gallop, rubs, systolic murmur Additional comments: lef upper chest pacemaker wound, no hematoma - GI/Abdominal GI/Abdominal exam: Present: normal bowel sounds, soft, no peritoneal signs. Absent: distended, tenderness - Extremities Exam Extremities exam: Present: warm, radial pulses palpable and symmetrical. Absent : calf tenderness, cyanotic, pedal edema - Neurological Exam Neurological exam: Present: CN II-XII intact, oriented X3, no focal deficits. Absent: pronater drift, facial droop, speech deficit - Skin Skin exam: Present: dry, intact Internal Medicine: Result - Labs CBC & Chem 7: 05/22/17 05:41 05/22/17 05:41 Labs: Short CBC 05/22/17 Range/Units 05:41 WBC 9.5 (4.3-11.1) K/mcL Hgb 13.2 (11.5-15.4) g/dL Hct 39.9 (35.3-44.9) % Plt Count 204 (140-400) K/mcL Neutrophils # 5.3 (1.6-8.9) K/mcL BMP 05/22/17 05:41 Sodium 142 Potassium 3.7 Chloride 106 Carbon Dioxide 29 BUN 12 Creatinine 0.73 Glucose 116 H Calcium 9.7 Cardiac Enzymes 05/21/17 05/22/17 Range/Units 22:49 05:41 Troponin I 0.09 H* 0.08 H* (0-0.03) ng/mL - ABG Interpretation ABG results: PT/INR, D-dimer PT 11.1 Seconds (9.4-12.1) 05/21/17 19:07 Consult Discharge Plan - Plan [facility]errals: [facility] [Primary Care Provider] -
[2017-05-22] MEDS ORDERED: Insulin LISPRO 300 UNITS/3 ML VIAL SQ SCH (21:00)
[2017-05-22] MEDS ORDERED: Famotidine 20 MG TABLET PO SCH (21:00)
[2017-05-23] MEDS: *HR* Heparin 5,000 UNIT/ML VIAL SQ SCH ×2 (05:57→18:18)
[2017-05-23] MEDS: Insulin LISPRO 300 UNITS/3 ML VIAL SQ SCH ×3 (08:20→18:17)
[2017-05-23] MEDS: Aspirin 81 MG TAB.CHEW PO SCH (08:41)
[2017-05-23] MEDS: Spironolactone 25 MG TABLET PO SCH (08:41)
[2017-05-23] MEDS: Isosorbide MONOnitrate (24 HR) 30 MG TAB.ER.24H PO SCH (08:42)
[2017-05-23] MEDS: Furosemide 40 MG TABLET PO SCH (08:43)
[2017-05-23] MEDS: Insulin DETEMIR 100 UNIT/ML X5UNITS SQ SCH (08:45)
[2017-05-23] MEDS: Nicotine 21 MG PATCH.TD24 TD SCH (08:45)
[2017-05-23] MEDS: amLODIPine 5 MG TABLET PO SCH (08:46)
[2017-05-23] MEDS: Sennosides/Docusate Sodium TABLET PO SCH (08:47)
[2017-05-23] MEDS: CYANOCOBALAMIN 100 MCG PO SCH (08:47)
--- NOTE | 2017-05-23 13:04 | Cardiology Progress Note ---
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 Holter monitor and recent stress test ordered for our review. Initial EKG shows SR with frequent PAC. Telemetry review during hospital stay revealed [place] (Mobitz I second degree AV block). He underwent medtronic dual chamber PPM placement yesterday with Dr. Addison Hong. No complication from his procedure. Echo shows preserved EF. No significant valvular disease. Post day device check shows normal functioning device. atrial capture threshold was unable to be measured. Reviewed device check with Dr. Hong. Device measurements are ok. Ok to re-do a device check in the out-pt setting at one week f/u. Out-pt EP f/u will be made. Activity restrictions reviewed with patient. No lifting over 5 lbs for one month. No driving for two weeks. LAKESHA dressing can be removed in two days. Steri strips will fall off in 10-15 days. Reportable symptoms such as redness, drainage, swelling, or fever reviewed. CXR is pending. If no concerning findings ok for discharge from cardiology standpoint. Discussion w patient/family: The assessment and plan as outlined above was discussed with the patient and/or family members who expressed understanding and agreement. All questions were answered. Thank you for involving us in the care of your patient. Please call with any questions. Subjective Principal diagnosis: second degree AV block, type I, s/p PPM Interval history: Mr. Mckeon is s/p PPM 05/22/17. Denies pain. States that he is breathing better. CXR is pending. Objective Vital Signs, Last 4 Hours Temp Pulse Resp BP Pulse Ox 05/23/17 11:05 97.8 F 81 18 137/55 94 General: Conversant, No Apparent Distress HEENT: Atraumatic, Normocephaly, Mucus Membranes Moist Neck: No JVD, Normal carotid pulses Cardiac: Reg Rate and Rhythm, Normal S1 and S2, No Murmur Lungs: Normal Breath Sounds, No Wheeze, Rales, Rhonchi Neuro: Alert and responsive, No focal deficits noted Abdomen: Soft, Non-Tender Skin: No rashes noted on visualized skin Musculoskeletal: No Chest Wall Tenderness, Other (LAKESHA dressing D/I. ) Extremities: No Clubbing, No Cyanosis, No Edema, Normal Pulses Results 05/22/17 05:41 05/22/17 05:41 - Imaging and Cardiology Echo: report reviewed Consult Discharge Plan - Plan Referrals: [facility] [Primary Care Provider] -
[2017-05-23 15:16] VITALS: BP 159/82
--- NOTE | 2017-05-23 16:01 | Discharge Summary ---
Date of Encounter: 05/23/17 Time of Encounter: 15:56 - Discharge Diagnosis (1) [place] Priority: Primary Status: Acute Comments: History of sick sinus syndrome, and also symptomatic bradycardia 2ry to Mobitz I second degree AV block (2) COPD (chronic obstructive pulmonary disease) Priority: Secondary Status: Acute Qualifiers: COPD type: emphysema Emphysema type: other Qualified Code(s): J43.8 - Other emphysema (3) Diabetes Priority: Secondary Status: Acute Qualifiers: Diabetes mellitus type: type 2 Diabetes mellitus complication status: without complication Diabetes mellitus senior living insulin use: with obstetrician use Qualified Code(s): E11.9 - Type 2 diabetes mellitus without complications ; Z79.4 - custodial (current) use of insulin (4) Hypertension Priority: Secondary Status: Acute Qualifiers: Hypertension type: essential hypertension Qualified Code(s): I10 - Essential (primary) hypertension (5) CHF (congestive heart failure) Priority: Secondary Status: Acute Qualifiers: Congestive heart failure type: diastolic Congestive heart failure chronicity: chronic Qualified Code(s): I50.32 - Chronic diastolic (congestive ) heart failure (6) Tobacco abuse Priority: Secondary Status: Acute (7) Elevated troponin Priority: Secondary Status: Acute Comments: Likely secondary to demand ischemia (8) CAP (community acquired pneumonia) Priority: Secondary Status: Acute Comments: Start Augmentin Qualifiers: Laterality: right Lung location: lower lobe of lung Qualified Code(s): J18.1 - Lobar pneumonia, unspecified organism - Discharge Medications Prescriptions: Amoxicillin/Clavulanate [Augmentin] 875 mg PO BIDWM #14 tablet Home Medications: Acetaminophen [Tylenol] 500 mg PO Q4H PRN 05/21/17 [History] Albuterol Neb [Proventil Neb] 2.5 mg IH Q6H PRN 05/21/17 [History] Albuterol Sulfate [Albuterol Inhaler] 2 puff IH Q6H PRN 05/21/17 [History] Amlodipine Besylate 10 mg PO DAILY 05/21/17 [History] Ascorbic Acid [Vitamin C] 1,000 mg PO DAILY 05/21/17 [History] Aspirin 81 mg PO DAILY 05/21/17 [History] Atorvastatin Calcium [Lipitor] 80 mg PO HS 05/21/17 [History] Carboxymethylcellulose Sodium [Refresh Liquigel] 1 drop BOTH EYES QID 05/21/17 [ History] Cholecalciferol (D-3) [Vitamin D] 2,000 unit PO HS 05/21/17 [History] Cyanocobalamin (Vitamin B-12) [Vitamin B-12] 100 mcg PO DAILY 05/21/17 [History] Dextrose [Glucose] 15 gm PO AD PRN 05/21/17 [History] Furosemide [Lasix] 60 mg PO DAILY 05/21/17 [History] Haloperidol [Haldol] 25 mg PO HS 05/21/17 [History] Insulin ASPART [NovoLOG] 5 unit SQ 1500 05/21/17 [History] Insulin Glargine,Hum.rec.anlog [Basaglar Kwikpen U-100] 40 unit SQ BID 05/21/17 [History] Isosorbide MONOnitrate (24 HR) [Imdur] 30 mg PO DAILY 05/21/17 [History] Lidocaine 4% CRM (LMX) [Lmx 4] 1 appl TP Q6H 05/21/17 [History] Losartan Potassium [Cozaar] 50 mg PO QAM 05/21/17 [History] Losartan Potassium [Cozaar] 100 mg PO QPM 05/21/17 [History] Lutein/Zeaxanthin [Ocuvite Lutein 25-5 mg Softgel] 1 each PO DAILY 05/21/17 [ History] Mag Hydrox/Al Hydrox/Simeth [Maalox Advanced Suspension] 10 ml PO QID PRN [History] Magnesium Hydroxide [Milk of Magnesia] 7,200 mg PO BID PRN 05/21/17 [History] Melatonin [Melatin] 3 mg PO HS PRN 05/21/17 [History] Multivitamin-Min/Iron/FA/Vit K [Multi-Day Plus Minerals Tablet] 1 each PO DAILY 05/21/17 [History] Nitroglycerin [Nitrostat] 0.4 mg SL Q5M PRN 05/21/17 [History] [place]-3/Dha/Epa/Fish Oil [Fish Oil 1,000 mg Softgel] 1,000 mg PO BID 05/21/17 [ History] Polyethylene Glycol 3350 [MiraLAX] 17 gm PO DAILY 05/21/17 [History] Potassium Chloride [Klor-Con 10] 20 meq PO TID 05/21/17 [History] Prazosin HCl [Minipress] 12 mg PO HS 05/21/17 [History] Propylene Glycol/Peg 400 [Systane 0.3-0.4% Eye Drops] 1 drop OP QID 05/21/17 [ History] Pyridoxine (B-6) [Vitamin B-6] 50 mg PO DAILY 05/21/17 [History] Ranitidine HCl [Zantac] 150 mg PO HS 05/21/17 [History] Saliva Substitute Combo No.3 [Aquoral] 4 spray MM Q4H 05/21/17 [History] [place] Fruit [Saw [place]] 450 mg PO DAILY 05/21/17 [History] Sennosides/Docusate Sodium [Senna Plus] 1 each PO BID 05/21/17 [History] Spironolactone [Aldactone] 12.5 mg PO DAILY 05/21/17 [History] Terbinafine HCl [Terbinafine] 1 appl TP HS 05/21/17 [History] Amoxicillin/Clavulanate [Augmentin] 875 mg PO BIDWM #14 tablet 05/23/17 [Rx] Allergies/Adverse Reactions: 3 Allergy/AdvReac Type Severity Reaction Status Date / Time simvastatin Allergy See Verified 05/21/17 21:18 Comments Mesoridazine [From Serentil] AdvReac See Verified 05/21/17 21:18 Comments Procedures/tests Complete & Pending: Procedures Performed prior 72 hours Category Date Time Status CL Insert Permanent Pacemaker [CL] Routine Lath Hand 05/22/17 15:26 Ordered EV echo with saline Routine Y 05/22/17 22:28 Completed Date of admission: 05/21/17 20:57 [facility] care physician: [facility] Consults: 05/21/17 22:29 Consult to Cardiology [CONS] Routine Comment: Consulting Provider: Cardiology Viola Reason for Consult: Arrhthmia by [facility] record, not sure the type Call Completed: No 05/22/17 10:28 Consult to Electrophysiology (EP) [CONS] Routine Consulting Provider: Electrophysiology Viola Reason for Consult: [place] evaluate for PPM Call Completed: Yes 05/23/17 12:14 Consult to Private Duty Lpn [CONS] Routine Reason for SW Consult: penitentiary? - Patient Status Disposition: Home Health Service Condition: Good Overall status at discharge: patient is progressing back to baseline - Discharge Instructions Follow Up With: [facility] [Primary Care Provider] - Additional Instructions: Follow-up with a primary care physician within the next 7 days. Follow-up with cardiology within the next 7 days. Start Augmentin. No lifting over 5 lbs for one month. No driving for two weeks. Dressing can be removed in two days. Steri strips will fall off in 10-15 days. Reporte symptoms such as redness, drainage, swelling, or fever reviewed. - Diet and Activity Activity: increase activity as tolerated Diet: diabetic diet Hospital course: Mr. Hinkle is a 72 year old male with PMH of DM insulin-dependent, COPD, HTN, HLD, diastolic CHF , tobacco abuse that presented to [facility] as recommended by [facility] asset protection detective Dr. Mckinnon for "tachy abraham syndrome" on recent event monitor, per [facility] documentation. Pt reported dizziness/lightheadedness and increased fatigue over recent weeks. He denied any syncopal events or falls. Denied any medication changes to his knowledge. Denied any known hx of CAD. Reportedly had a stress test at [facility] 03/2017. He denied chest pain. He reported chronic dyspnea, worse on exertion. Troponins 0.07, 0.09, 0.07. Telemetry reviewed. Lowest HR 28 at 6:23 AM. Evidence of Wenckebach on telemetry. 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 Holter monitor and recent stress test ordered for our review. Initial EKG shows SR with frequent PAC. Telemetry review during hospital stay revealed Wenckebach (Mobitz I second degree AV block). He underwent medtronic dual chamber PPM placement yesterday with Dr. Addison Hong. No complication from his procedure. Echo shows preserved EF 55-60% with mild concentric left ventricular hypertrophy and mild diastolic dysfunction. No significant valvular disease. Post day device check showed normal functioning device, atrial capture threshold was unable to be measured. Reviewed device check with Dr. Hong. Device measurements are ok. Ok to re-do a device check in the out-pt setting at one week f/u. Out-pt EP f/u will be made. Activity restrictions reviewed with patient. Chest x-ray showed no pneumothorax but showed a right basilar airspace disease that appeared increased. Started Augmentin, can continue for 7 days - Time Spent with Patient Total time spent providing and/or coordinating discharge services: Greater than 30 minutes (40 min) - Constitutional Vitals: Temp Pulse Resp BP Pulse Ox 98.4 F 94 18 159/82 94 05/23/17 15:15 05/23/17 15:15 05/23/17 15:15 05/23/17 15:15 05/23/17 15:15 General appearance: Present: A&O X 3, no acute distress, answers questions appropriately - Head Head exam: Present: atraumatic, normocephalic - Eye Eye exam: Present: PERRL, conjuntiva pink, sclera anicteric Pupils: Present: PERRL - Neck Neck exam general surgery: Present: supple, trachea midline. Absent: lymphadenopathy - Respiratory Respiratory exam: Present: CTAB. Absent: accessory muscle use, rales, rhonchi, wheezes - Cardiovascular Cardiovascular exam: Present: RRR, +S1, +S2. Absent: diastolic murmur, gallop, rubs, systolic murmur Additional comments: Left upper chest pacemaker wound without signs of infection or hematoma - GI/Abdominal GI/Abdominal exam: Present: normal bowel sounds, soft, no peritoneal signs. Absent: distended, tenderness - Extremities Exam Extremities exam: Present: warm, radial pulses palpable and symmetrical. Absent : calf tenderness, cyanotic, pedal edema - Neurological Exam Neurological exam: Present: CN II-XII intact, oriented X3, no focal deficits. Absent: pronater drift, facial droop, speech deficit - Skin Skin exam: Present: dry, intact
--- NOTE | 2017-05-23 16:11 | Physician Discharge Referral ---
Home Health/Hosp Referral Info Transfer to: Home Health Provider in Charge Post Discharge: PCP - Diagnosis (1) [place] Status: Acute (2) COPD (chronic obstructive pulmonary disease) Status: Acute (3) Diabetes Status: Acute (4) Hypertension Status: Acute (5) CHF (congestive heart failure) Status: Acute (6) Tobacco abuse Status: Acute (7) Elevated troponin Status: Acute (8) CAP (community acquired pneumonia) Status: Acute - Respiratory Orders Smoking Cessation: Smoking cessation has been advised. For more information, call the [place] Tobacco Quit Line at 7-588-ANPP-NOW. - Diet/Nutrition Diet/Nutrition Orders: No Added Salt (ERICH) - Services Needed Following services are medically necessary services: Nursing, Home Health Aide, Physical Therapy, Occupational Therapy Home Care Orders: Follow-up with a primary care physician within the next 7 days. Follow-up with cardiology within the next 7 days. Start Augmentin. No lifting over 5 lbs for one month. No driving for two weeks. Dressing can be removed in two days. Steri strips will fall off in 10-15 days. Reporte symptoms such as redness, drainage, swelling, or fever reviewed. - Transfer Medications Prescriptions: Amoxicillin/Clavulanate [Augmentin] 875 mg PO BIDWM #14 tablet Home Medications: Acetaminophen [Tylenol] 500 mg PO Q4H PRN 05/21/17 [History] Albuterol Neb [Proventil Neb] 2.5 mg IH Q6H PRN 05/21/17 [History] Albuterol Sulfate [Albuterol Inhaler] 2 puff IH Q6H PRN 05/21/17 [History] Amlodipine Besylate 10 mg PO DAILY 05/21/17 [History] Ascorbic Acid [Vitamin C] 1,000 mg PO DAILY 05/21/17 [History] Aspirin 81 mg PO DAILY 05/21/17 [History] Atorvastatin Calcium [Lipitor] 80 mg PO HS 05/21/17 [History] Carboxymethylcellulose Sodium [Refresh Liquigel] 1 drop BOTH EYES QID 05/21/17 [ History] Cholecalciferol (D-3) [Vitamin D] 2,000 unit PO HS 05/21/17 [History] Cyanocobalamin (Vitamin B-12) [Vitamin B-12] 100 mcg PO DAILY 05/21/17 [History] Dextrose [Glucose] 15 gm PO AD PRN 05/21/17 [History] Furosemide [Lasix] 60 mg PO DAILY 05/21/17 [History] Haloperidol [Haldol] 25 mg PO HS 05/21/17 [History] Insulin ASPART [NovoLOG] 5 unit SQ 1500 05/21/17 [History] Insulin Glargine,Hum.rec.anlog [Basaglar Kwikpen U-100] 40 unit SQ BID 05/21/17 [History] Isosorbide MONOnitrate (24 HR) [Imdur] 30 mg PO DAILY 05/21/17 [History] Lidocaine 4% CRM (LMX) [Lmx 4] 1 appl TP Q6H 05/21/17 [History] Losartan Potassium [Cozaar] 50 mg PO QAM 05/21/17 [History] Losartan Potassium [Cozaar] 100 mg PO QPM 05/21/17 [History] Lutein/Zeaxanthin [Ocuvite Lutein 25-5 mg Softgel] 1 each PO DAILY 05/21/17 [ History] Mag Hydrox/Al Hydrox/Simeth [Maalox Advanced Suspension] 10 ml PO QID PRN [History] Magnesium Hydroxide [Milk of Magnesia] 7,200 mg PO BID PRN 05/21/17 [History] Melatonin [Melatin] 3 mg PO HS PRN 05/21/17 [History] Multivitamin-Min/Iron/FA/Vit K [Multi-Day Plus Minerals Tablet] 1 each PO DAILY 05/21/17 [History] Nitroglycerin [Nitrostat] 0.4 mg SL Q5M PRN 05/21/17 [History] [place]-3/Dha/Epa/Fish Oil [Fish Oil 1,000 mg Softgel] 1,000 mg PO BID 05/21/17 [ History] Polyethylene Glycol 3350 [MiraLAX] 17 gm PO DAILY 05/21/17 [History] Potassium Chloride [Klor-Con 10] 20 meq PO TID 05/21/17 [History] Prazosin HCl [Minipress] 12 mg PO HS 05/21/17 [History] Propylene Glycol/Peg 400 [Systane 0.3-0.4% Eye Drops] 1 drop OP QID 05/21/17 [ History] Pyridoxine (B-6) [Vitamin B-6] 50 mg PO DAILY 05/21/17 [History] Ranitidine HCl [Zantac] 150 mg PO HS 05/21/17 [History] Saliva Substitute Combo No.3 [Aquoral] 4 spray MM Q4H 05/21/17 [History] Saw [place] Fruit [Saw [place]] 450 mg PO DAILY 05/21/17 [History] Sennosides/Docusate Sodium [Senna Plus] 1 each PO BID 05/21/17 [History] Spironolactone [Aldactone] 12.5 mg PO DAILY 05/21/17 [History] Terbinafine HCl [Terbinafine] 1 appl TP HS 05/21/17 [History] Amoxicillin/Clavulanate [Augmentin] 875 mg PO BIDWM #14 tablet 05/23/17 [Rx] Allergies/Adverse Reactions: 3 Allergy/AdvReac Type Severity Reaction Status Date / Time simvastatin Allergy See Verified 05/21/17 21:18 Comments Mesoridazine [From Serentil] AdvReac See Verified 05/21/17 21:18 Comments Certification: Further, I certify that my clinical findings support that this patient is homebound (i.e. absences from home require considerable and taxing effort and are for medical reasons or hinduism services or infrequently or short duration when for other reasons) because: Homebound Reason: Patient requires assistance of a person or device to safely leave home Attestation: My signature below is to certify that this patient is under my care and that I, or nurse practitioner, or a physician's miner assistant working with me, has a face-to -face encounter with this patient.
--- NOTE | 2017-05-23 16:11 | Physician Discharge Referral ---
[facility] Referral Info Provider in Charge after Transfer: PCP Institutional Level of Care: Skilled (halfway) - Diagnosis (1) [place] Status: Acute (2) COPD (chronic obstructive pulmonary disease) Status: Acute (3) Diabetes Status: Acute (4) Hypertension Status: Acute (5) CHF (congestive heart failure) Status: Acute (6) Tobacco abuse Status: Acute (7) Elevated troponin Status: Acute (8) CAP (community acquired pneumonia) Status: Acute - Transfer Medications Prescriptions: Amoxicillin/Clavulanate [Augmentin] 875 mg PO BIDWM #14 tablet Home Medications: Acetaminophen [Tylenol] 500 mg PO Q4H PRN 05/21/17 [History] Albuterol Neb [Proventil Neb] 2.5 mg IH Q6H PRN 05/21/17 [History] Albuterol Sulfate [Albuterol Inhaler] 2 puff IH Q6H PRN 05/21/17 [History] Amlodipine Besylate 10 mg PO DAILY 05/21/17 [History] Ascorbic Acid [Vitamin C] 1,000 mg PO DAILY 05/21/17 [History] Aspirin 81 mg PO DAILY 05/21/17 [History] Atorvastatin Calcium [Lipitor] 80 mg PO HS 05/21/17 [History] Carboxymethylcellulose Sodium [Refresh Liquigel] 1 drop BOTH EYES QID 05/21/17 [ History] Cholecalciferol (D-3) [Vitamin D] 2,000 unit PO HS 05/21/17 [History] Cyanocobalamin (Vitamin B-12) [Vitamin B-12] 100 mcg PO DAILY 05/21/17 [History] Dextrose [Glucose] 15 gm PO AD PRN 05/21/17 [History] Furosemide [Lasix] 60 mg PO DAILY 05/21/17 [History] Haloperidol [Haldol] 25 mg PO HS 05/21/17 [History] Insulin ASPART [NovoLOG] 5 unit SQ 1500 05/21/17 [History] Insulin Glargine,Hum.rec.anlog [Basaglar Kwikpen U-100] 40 unit SQ BID 05/21/17 [History] Isosorbide MONOnitrate (24 HR) [Imdur] 30 mg PO DAILY 05/21/17 [History] Lidocaine 4% CRM (LMX) [Lmx 4] 1 appl TP Q6H 05/21/17 [History] Losartan Potassium [Cozaar] 50 mg PO QAM 05/21/17 [History] Losartan Potassium [Cozaar] 100 mg PO QPM 05/21/17 [History] Lutein/Zeaxanthin [Ocuvite Lutein 25-5 mg Softgel] 1 each PO DAILY 05/21/17 [ History] Mag Hydrox/Al Hydrox/Simeth [Maalox Advanced Suspension] 10 ml PO QID PRN [History] Magnesium Hydroxide [Milk of Magnesia] 7,200 mg PO BID PRN 05/21/17 [History] Melatonin [Melatin] 3 mg PO HS PRN 05/21/17 [History] Multivitamin-Min/Iron/FA/Vit K [Multi-Day Plus Minerals Tablet] 1 each PO DAILY 05/21/17 [History] Nitroglycerin [Nitrostat] 0.4 mg SL Q5M PRN 05/21/17 [History] [place]-3/Dha/Epa/Fish Oil [Fish Oil 1,000 mg Softgel] 1,000 mg PO BID 05/21/17 [ History] Polyethylene Glycol 3350 [MiraLAX] 17 gm PO DAILY 05/21/17 [History] Potassium Chloride [Klor-Con 10] 20 meq PO TID 05/21/17 [History] Prazosin HCl [Minipress] 12 mg PO HS 05/21/17 [History] Propylene Glycol/Peg 400 [Systane 0.3-0.4% Eye Drops] 1 drop OP QID 05/21/17 [ History] Pyridoxine (B-6) [Vitamin B-6] 50 mg PO DAILY 05/21/17 [History] Ranitidine HCl [Zantac] 150 mg PO HS 05/21/17 [History] Saliva Substitute Combo No.3 [Aquoral] 4 spray MM Q4H 05/21/17 [History] [place] Fruit [Saw [place]] 450 mg PO DAILY 05/21/17 [History] Sennosides/Docusate Sodium [Senna Plus] 1 each PO BID 05/21/17 [History] Spironolactone [Aldactone] 12.5 mg PO DAILY 05/21/17 [History] Terbinafine HCl [Terbinafine] 1 appl TP HS 05/21/17 [History] Amoxicillin/Clavulanate [Augmentin] 875 mg PO BIDWM #14 tablet 05/23/17 [Rx] Allergies/Adverse Reactions: 3 Allergy/AdvReac Type Severity Reaction Status Date / Time simvastatin Allergy See Verified 05/21/17 21:18 Comments Mesoridazine [From [place]] AdvReac See Verified 05/21/17 21:18 Comments - Respiratory Orders Smoking Cessation: Smoking cessation has been advised. For more information, call the [place] Tobacco Quit Line at 9-865-NLHB-NOW. - Advance Directives Code Status: Full Code - Treatments List/Other: Follow-up with a primary care physician within the next 7 days. Follow-up with cardiology within the next 7 days. Start Augmentin. No lifting over 5 lbs for one month. No driving for two weeks. Dressing can be removed in two days. Steri strips will fall off in 10-15 days. Reporte symptoms such as redness, drainage, swelling, or fever reviewed. - Diet Orders No Added Salt (ERICH) CERTIFICATION: I certify that the transfer of the above named patient to an Extended Care Facility is necessary for the continuing treatment of the diagnosis listed. The above information is true and accurate reflection of patient's current condition. Confidential - Redisclosure prohibited without a patient's written consent.
[2017-05-30 08:11] LABS: Blood Urea Nitrogen 15 mg/dL (8-26)
[2017-05-30 08:18] LABS: Red Blood Count 4.46 M/mcL (4.19-5.50)
[2017-05-30 08:19] LABS: Hemoglobin 13.3 g/dL (12.9-16.9)
[2017-05-30 08:22] LABS: Hematocrit 39.3 % (37.5-50.1)
[2017-05-30 08:22] LABS: Blood Urea Nitrogen 12 mg/dL (8-26)
[2017-05-30 08:23] LABS: Red Blood Count 4.54 M/mcL (4.19-5.50)
[2017-05-30 08:24] LABS: Hematocrit 39.9 % (37.5-50.1); Hemoglobin 13.2 g/dL (12.9-16.9)
== END 2017-05-23 19:10 | disposition home health service (06) | DRG 242 ==
LOC: EMEROO 18:40 → SUATTDRO 20:57 → 3BNU 20:57 → EDSEX 20:57 → 3BNU 21:27
PROVIDERS: ADMIT Internal Medicine; ATTEND Internal Medicine